=== PATIENT | female | born 1990 | race Two or more races ===

== ENCOUNTER 2019-04-07 10:22 | Emergency (ER) | payer MEDICAID ==
[~2019-04-07] VITALS: Ht 167.6 cm; Wt 87.1 kg
[~2019-04-07 10:22] MED LIST: PREN-96 PO
[2019-04-07 10:40] VITALS: BP 104/61
[2019-04-07 11:17] LABS: Basophils # (auto) 0 uL; Basophils % (auto) 0.5 % (0.0-2.0); Eosinophils # (auto) 0 uL; Eosinophils % (auto) 0.8 % (0.0-7.0); Hematocrit 38.2 % (36.0-46.0); Hemoglobin 12.6 g/dL (12.2-16.2); Lymphocytes # (auto) 1.3 uL; Lymphocytes % (auto) 23.6 % (10.0-50.0); Mean Corpuscular Hemoglobin 28.1 pg (28.0-32.0); Mean Corpuscular Volume 85.1 fL (80.0-100.0); Monocytes # (auto) 0.3 uL; Monocytes % (auto) 6.1 % (0.0-12.0); Neutrophils # (auto) 3.8 uL; Nucleated Red Blood Cells % 0.1 %; Platelet Count (auto) 248 10^3/uL (140-450); Red Blood Cells 4.49 10^6/uL (4.0-5.20); Red Cell Distribution Width 13.3 % (11.8-14.3); White Blood Cell 5.5 10^3/uL (4.4-10.8)
[2019-04-07 11:25] LABS: Alanine Aminotransferase 24 U/L (13-56); Albumin 3.9 g/dL (3.4-5.0); Anion Gap 7 (5-15); Blood Urea Nitrogen 11 mg/dL (7-18); Calcium 9.1 mg/dL (8.5-10.1); Carbon Dioxide 25 mmol/L (21-32); Chloride 105 mmol/L (98-107); Glucose 87 mg/dL (74-106); Potassium 4.2 mmol/L (3.5-5.1); Sodium 137 mmol/L (136-145)
[2019-04-07 11:30] LABS: Alkaline Phosphatase 61 U/L (45-117); Aspartate Aminotransferase 10 U/L (15-37); BUN/Creatinine Ratio 16.9; Bilirubin, Total 0.2 mg/dL (0.2-1.0); GFR African American 139 mL/min; GFR Non-African American 115 mL/min; Total Protein 7.8 g/dL (6.4-8.2)
[2019-04-07 11:46] LABS: Urine Bacteria NONE SEEN /hpf (None Seen); Urine Blood Negative /uL (Negative); Urine Specific Gravity 1.009 (1.001-1.035); Urine WBC <1 /hpf (0 - 5)
== END 2019-04-07 13:06 | disposition home or self-care (01) ==
LOC: ER 10:22
DX: O99.411 Diseases of the circulatory system complicating pregnancy, first trimester (principal); R00.2 Palpitations; Z3A.01 Less than 8 weeks gestation of pregnancy
CPT/HCPCS: 36415; 80053; 81001; 81025; 84443; 84484; 85025; 93005

== ENCOUNTER 2019-08-25 09:00 | Observation (INO) | payer MEDICAID ==
[~2019-08-25] VITALS: Ht 167.6 cm; Wt 93.4 kg
== END 2019-08-25 10:10 | disposition home or self-care (01) | DRG 566 ==
LOC: LDRP 09:00
PROVIDERS: ADMIT Obstetrics & Gynecology; ATTEND Obstetrics & Gynecology
DX: O26.872 Cervical shortening, second trimester (principal); O26.892 Other specified pregnancy related conditions, second trimester; R10.2 Pelvic and perineal pain; Z3A.27 27 weeks gestation of pregnancy
CPT/HCPCS: 59025; 81002; G0378

== ENCOUNTER 2019-08-31 09:25 | Observation (INO) | payer MEDICAID | END 2019-08-31 10:58 | disposition home or self-care (01) | DRG 566 | LOC: LDRP 09:25 | PROVIDERS: ADMIT Obstetrics & Gynecology; ATTEND Obstetrics & Gynecology | DX: O26.873 Cervical shortening, third trimester (principal); O60.03 Preterm labor without delivery, third trimester; Z3A.28 28 weeks gestation of pregnancy | CPT/HCPCS: 59025; 81002; G0378 ==

== ENCOUNTER 2019-09-06 08:00 | Observation (INO) | payer MEDICAID | END 2019-09-06 09:35 | disposition home or self-care (01) | DRG 566 | LOC: LDRP 08:00 | PROVIDERS: ADMIT Specialist; ATTEND Specialist | DX: O26.873 Cervical shortening, third trimester (principal); Z3A.29 29 weeks gestation of pregnancy | CPT/HCPCS: 59025; 76815; 81002; G0378 ==

== ENCOUNTER 2019-09-13 16:35 | Observation (INO) | payer MEDICAID ==
[~2019-09-13] VITALS: Ht 167.6 cm; Wt 94.8 kg
== END 2019-09-13 16:40 | disposition home or self-care (01) | DRG 566 ==
LOC: LDRP 16:35
PROVIDERS: ADMIT Obstetrics & Gynecology; ATTEND Obstetrics & Gynecology
DX: O26.873 Cervical shortening, third trimester (principal); O60.03 Preterm labor without delivery, third trimester; Z3A.30 30 weeks gestation of pregnancy
CPT/HCPCS: 59025; 81002; G0378

== ENCOUNTER 2019-09-21 16:40 | Observation (INO) | payer MEDICAID | END 2019-09-21 17:20 | disposition home or self-care (01) | DRG 566 | LOC: LDRP 16:40 | PROVIDERS: ADMIT Obstetrics & Gynecology; ATTEND Obstetrics & Gynecology | DX: O26.873 Cervical shortening, third trimester (principal); O62.9 Abnormality of forces of labor, unspecified; Z3A.31 31 weeks gestation of pregnancy | CPT/HCPCS: 59025; 81002; G0378 ==

== ENCOUNTER 2019-09-29 16:42 | Observation (INO) | payer MEDICAID | END 2019-09-29 17:34 | disposition home or self-care (01) | DRG 566 | LOC: LDRP 16:42 | PROVIDERS: ADMIT Obstetrics & Gynecology; ATTEND Obstetrics & Gynecology | DX: O26.873 Cervical shortening, third trimester (principal); O60.03 Preterm labor without delivery, third trimester; Z3A.32 32 weeks gestation of pregnancy | CPT/HCPCS: 59025; 81002; G0378 ==

== ENCOUNTER 2019-10-06 16:40 | Observation (INO) | payer MEDICAID | END 2019-10-06 17:30 | disposition home or self-care (01) | DRG 563 | LOC: LDRP 16:40 | PROVIDERS: ADMIT Obstetrics & Gynecology; ATTEND Obstetrics & Gynecology | DX: O60.03 Preterm labor without delivery, third trimester (principal); Z3A.33 33 weeks gestation of pregnancy | CPT/HCPCS: 59025; 81002; G0378 ==

== ENCOUNTER 2019-10-14 17:08 | Observation (INO) | payer MEDICAID ==
[~2019-10-14] VITALS: Ht 167.6 cm; Wt 97.5 kg
== END 2019-10-14 17:52 | disposition home or self-care (01) | DRG 563 ==
LOC: LDRP 17:08
PROVIDERS: ADMIT Obstetrics & Gynecology; ATTEND Obstetrics & Gynecology
DX: O60.03 Preterm labor without delivery, third trimester (principal); Z3A.34 34 weeks gestation of pregnancy
CPT/HCPCS: 59025; 81002; G0378

== ENCOUNTER 2019-11-16 15:25 | Observation (INO) | payer MEDICAID | END 2019-11-16 16:00 | disposition home or self-care (01) | DRG 566 | LOC: LDRP 15:25 | PROVIDERS: ADMIT Obstetrics & Gynecology; ATTEND Obstetrics & Gynecology | DX: O46.93 Antepartum hemorrhage, unspecified, third trimester (principal); Z3A.39 39 weeks gestation of pregnancy | CPT/HCPCS: 59025; 81002; G0378 ==

== ENCOUNTER 2019-11-18 18:50 | Inpatient (IN) | payer MEDICAID ==
[~2019-11-18] VITALS: Ht 167.6 cm; Wt 99.8 kg
[2019-11-18] MEDS ORDERED: LACT. RINGERS/OXYTOCIN 20UNITS 1,000 ML IV SCH (19:28)
[2019-11-18] MEDS ORDERED: PHISODERM TOP SOLN 240ML BTL TOP PRN (19:30)
[2019-11-18] MEDS ORDERED: METHYLERGONOVINE MALEATE 0.2 MG/ML AMP IM PRN (19:30)
[2019-11-18] MEDS ORDERED: DERMOPLAST 60ML BOTTLE TOP PRN (19:30)
[2019-11-18] MEDS ORDERED: WITCH HAZEL-GLYCERIN PAD TOP PRN (19:30)
[2019-11-18] MEDS ORDERED: LIDOCAINE 2%HCL (LOCAL ANESTH.) INJ 20ML MDV ID ONE (19:30)
[2019-11-18 20:23] LABS: Basophils # (auto) 0 uL; Basophils % (auto) 0.3 % (0.0-2.0); Eosinophils # (auto) 0 uL; Eosinophils % (auto) 0.5 % (0.0-7.0); Hematocrit 33.9 % (36.0-46.0); Hemoglobin 11.7 g/dL (12.2-16.2); Lymphocytes # (auto) 1.3 uL; Lymphocytes % (auto) 19.7 % (10.0-50.0); Mean Corpuscular Hemoglobin 28.7 pg (28.0-32.0); Mean Corpuscular Hgb Conc. 34.6 g/dL (32.0-36.0); Mean Corpuscular Volume 83.1 fL (80.0-100.0); Monocytes # (auto) 0.5 uL; Monocytes % (auto) 6.9 % (0.0-12.0); Neutrophils % (auto) 72.6 % (37.0-80.0); Nucleated Red Blood Cells % 0.1 %; Platelet Count (auto) 191 10^3/uL (140-450); Red Blood Cells 4.08 10^6/uL (4.0-5.20); Red Cell Distribution Width 15.1 % (11.8-14.3); White Blood Cell 6.9 10^3/uL (4.4-10.8)
[2019-11-18 20:42] LABS: Albumin 2.8 g/dL (3.4-5.0); Calcium 8.5 mg/dL (8.5-10.1); INR 0.92 (0.9-1.15); Partial Thromboplastin Time 26.2 sec (23.64-32.05); Potassium 3.8 mmol/L (3.5-5.1)
[2019-11-18 20:45] LABS: Bilirubin, Total 0.1 mg/dL (0.2-1.0); Total Protein 6.6 g/dL (6.4-8.2)
[2019-11-18 20:49] LABS: Urine Amorphous Crystal FEW /hpf (None Seen); Urine Bacteria FEW /hpf (None Seen); Urine Blood Negative /uL (Negative); Urine Mucus FEW (None Seen); Urine Specific Gravity 1.021 (1.001-1.035); Urine WBC 7 /hpf (0 - 5)
[2019-11-18 20:50] LABS: Alcohol, Urine < 3.0 mg/dL (0-5); Amphetamine Screen, Urine NEGATIVE (NEGATIVE); Barbiturate Scree,Urine NEGATIVE (NEGATIVE); Benzodiazephine Screen, Urine NEGATIVE (NEGATIVE); Cannabinoid Screen, Urine NEGATIVE (NEGATIVE); Cocaine Screen, Urine NEGATIVE (NEGATIVE); Opiate Scree,Urine NEGATIVE (NEGATIVE); Phencyclidine Screen, Urine NEGATIVE (NEGATIVE)
[2019-11-18] MEDS: LACTATED RINGER'S 1,000 ML IV SCH (20:56)
[2019-11-19] MEDS: LACTATED RINGER'S 1,000 ML IV SCH ×2 (02:41→09:25)
[2019-11-19] MEDS: ACETAMINOPHEN 325 MG TAB PO PRN ×2 (05:25→18:46)
[2019-11-19] MEDS ORDERED: LACTATED RINGER'S 500 ML IV ONE (13:40)
[2019-11-19] MEDS ORDERED: NALBUPHINE HCL 10 MG/1ml INJECTION IV PRN (13:45)
[2019-11-19] MEDS ORDERED: PROMETHAZINE HCL 25 MG/ML 1ML IV PRN (13:45)
[2019-11-19] MEDS ORDERED: fentaNYL CITRATE 100 MCG/2 ML VL IV ONE (13:45)
[2019-11-19] MEDS ORDERED: LIDOCAINE HCL 2 %PF INJ 10ML AMP IJ ONE (13:45)
[2019-11-19] MEDS ORDERED: fentaNYL 200mCg/100ml W ROPIVA 100 ML EPI SCH (13:45)
[2019-11-19] MEDS ORDERED: ePHEDrine SULFATE 50 MG/ML AMP IV ONE (13:45)
[2019-11-19] MEDS ORDERED: NALOXONE HCL 0.4 MG/ML VIAL IV ONE (13:45)
[2019-11-19] MEDS ORDERED: LIDOCAINE 2%HCL (LOCAL ANESTH.) INJ 20ML MDV IJ ONE (13:45)
[2019-11-19] MEDS ORDERED: BUTORPHANOL TARTRATE 2 MG/1 ML VIAL IM ONE (14:00)
[2019-11-19] MEDS ORDERED: LACT. RINGERS/OXYTOCIN 20UNITS 500 ML IV ONE (16:28)
--- NOTE | 2019-11-19 18:50 | NUR ---
Ambulation: Patient OOB with standby assistance by RN. Patient ambulated to bathroom with steady gait. Patient able to void 700cc without difficulty. [facility] teaching provided with returned demonstration by patient. Clean gown provided and bed linen changed. Patient ambulated back to bed with steady gait and no distress noted.
[2019-11-19] MEDS ORDERED: INFLUENZA QUAD 2019-2020 0.5ml SYRG IM ONE (21:15)
[2019-11-19 23:00] VITALS: BP 93/53
[2019-11-19] MEDS: IBUPROFEN 600 MG TAB PO PRN (23:13)
[2019-11-20 03:00] VITALS: BP 103/50
[2019-11-20 05:07] LABS: RPR Non Reactive (Non Reactive)
[2019-11-20 06:35] VITALS: BP 105/55
[2019-11-20] MEDS: IBUPROFEN 600 MG TAB PO PRN (07:12)
--- NOTE | 2019-11-20 08:08 | NUR ---
DR. BENJAMIN AT PT BEDSIDE, STATUS UPDATE GIVEN. ORDERS RECEIVED FROM DR. BENJAMIN TO DISCHARGE PATIENT HOME AND PT TO FOLLOW UP IN THE OB CLINIC IN 2 WEEKS. READ BACK AND VERIFIED ORDERS. WILL CARRY OUT. Addendum: 11/20/19 at 0829 by Sanam Garcia RN Amended: Links added.
--- NOTE | 2019-11-20 10:03 | NUR ---
IV removal IV DC'd with sterile technique, catheter fully intact. Pressure dressing applied to site. Patient tolerated procedure well.
[2019-11-20 11:20] VITALS: BP 110/56
--- NOTE | 2019-11-20 14:00 | NUR ---
PT ASKED IF SHE WOULD LIKE HER FLU VACCINE AT THIS TIME. PATIENT STATES SHE WANTS HER VACCINE CLOSER TO HER GOING HOME THIS EVENING. WILL CONTINUE TO MONITOR.
[2019-11-20 15:30] VITALS: BP 108/54
--- NOTE | 2019-11-20 17:02 | NUR ---
Discharge: Discharge instructions given as ordered. Pt encouraged to follow up with [facility] as instructed. All questions and concerns addressed. Patient verbalized understanding. Medication reconciliation completed and copy given to patient. All required/requested vaccines given and copies of vaccinations given to patient. Patient encouraged to prepare to depart unit.
--- NOTE | 2019-11-20 17:42 | NUR ---
Discharge: Patient taken to vehicle ambulatory via steady gait, pt declined wheelchair with all personal belongings, accompanied by staff and family member. No distress noted at time of departure, no adverse changes in status since initial assessment.
== END 2019-11-20 17:42 | disposition home or self-care (01) | DRG 560 ==
LOC: LDRP 18:50
PROVIDERS: ADMIT Specialist; ATTEND Specialist
PROC: 10E0XZZ Delivery of Products of Conception, External Approach (ICD-10-PCS; principal; 2019-11-19)
PROC: 0HQ9XZZ Repair Perineum Skin, External Approach (ICD-10-PCS; 2019-11-19)
PROC: 0UQMXZZ Repair Vulva, External Approach (ICD-10-PCS; 2019-11-19)
DX: O76 Abnormality in fetal heart rate and rhythm complicating labor and delivery (principal); O70.0 First degree perineal laceration during delivery; O71.82 Other specified trauma to perineum and vulva; Z37.0 Single live birth; Z3A.39 39 weeks gestation of pregnancy
CPT/HCPCS: 36415; 59025; 59409; 80053; 80307; 81001; 81002; 84112; 85025; 85610; 85730; 86592; 86850; 86900; 86901; 96365; 96366; 96372; G0378; J2590

== ENCOUNTER 2019-11-29 07:17 | Emergency (ER) | payer MEDICAID ==
[~2019-11-29] VITALS: Ht 167.6 cm; Wt 90.7 kg
[2019-11-29 08:15] VITALS: BP 101/62
[2019-11-29 08:20] LABS: Urine Bacteria MOD /hpf (None Seen); Urine Blood 3+ /uL (Negative); Urine Specific Gravity 1.013 (1.001-1.035); Urine WBC 319 /hpf (0 - 5); Urine WBC Clumps PRESENT /hpf (None Seen)
[2019-11-29] MEDS ORDERED: MORPHINE SULFATE 4 MG/ML SYR/VIAL IV ONE (09:00)
[2019-11-29] MEDS ORDERED: cefTRIAXone 1GM/50ML D5W 50 ML IV ONE (09:00)
[2019-11-29] MEDS ORDERED: ONDANSETRON HCL 4 MG/2 ML VIAL IV ONE (09:00)
[2019-11-29] MEDS ORDERED: SODIUM CHLORIDE 0.9% 1,000 ML IV ONE (09:15)
== END 2019-11-29 10:50 | disposition home or self-care (01) ==
LOC: ER 07:17
DX: N39.0 Urinary tract infection, site not specified (principal); N13.30 Unspecified hydronephrosis
CPT/HCPCS: 74176; 81001; 96365; 96375; 99284; J0696; J2270; J2405; J7030; J7042

== ENCOUNTER 2020-03-21 12:29 | Emergency (ER) | payer MEDICAID ==
[~2020-03-21] VITALS: Ht 167.6 cm; Wt 84.8 kg
[2020-03-21 14:15] LABS: Basophils # (auto) 0 10 ^3/uL (0-0.2); Basophils % (auto) 0.2 % (0.0-2.0); Eosinophils # (auto) 0.1 10 ^3/uL (0-0.8); Eosinophils % (auto) 1.2 % (0.0-7.0); Hematocrit 39.6 % (36.0-46.0); Lymphocytes # (auto) 1.7 10 ^3/uL (0.4-5.4); Lymphocytes % (auto) 28.9 % (10.0-50.0); Mean Corpuscular Hemoglobin 27.8 pg (28.0-32.0); Mean Corpuscular Hgb Conc. 32.9 g/dL (32.0-36.0); Mean Corpuscular Volume 84.6 fL (80.0-100.0); Monocytes # (auto) 0.4 10 ^3/uL (0-1.3); Neutrophils # (auto) 3.8 10 ^3/uL (1.6-8.6); Neutrophils % (auto) 63.7 % (37.0-80.0); Platelet Count (auto) 242 10^3/uL (140-450); Red Blood Cells 4.68 10^6/uL (4.0-5.20); Red Cell Distribution Width 14.3 % (11.8-14.3); White Blood Cell 5.9 10^3/uL (4.4-10.8)
[2020-03-21 16:26] LABS: Urine Bacteria FEW /hpf (None Seen); Urine Blood 1+ /uL (Negative); Urine Mucus FEW (None Seen); Urine Specific Gravity 1.011 (1.001-1.035); Urine WBC 1 /hpf (0 - 5)
[2020-03-21 16:50] VITALS: BP 104/64
== END 2020-03-21 16:52 | disposition home or self-care (01) ==
LOC: ER 12:29
DX: O03.9 Complete or unspecified spontaneous abortion without complication (principal); Z79.899 Other long term (current) drug therapy; Z3A.01 Less than 8 weeks gestation of pregnancy
CPT/HCPCS: 36415; 76801; 76817; 81001; 84702; 85025

== ENCOUNTER 2020-07-07 06:08 | Day surgery (SDC) | payer MEDICAID ==
[2020-07-03 14:38] LABS: Basophils # (auto) 0 10 ^3/uL (0-0.2); Basophils % (auto) 0.4 % (0.0-2.0); Eosinophils # (auto) 0.1 10 ^3/uL (0-0.8); Eosinophils % (auto) 1.9 % (0.0-7.0); Hemoglobin 13.5 g/dL (12.2-16.2); Lymphocytes # (auto) 1.6 10 ^3/uL (0.4-5.4); Lymphocytes % (auto) 31.2 % (10.0-50.0); Mean Corpuscular Hemoglobin 27.9 pg (28.0-32.0); Mean Corpuscular Volume 84.5 fL (80.0-100.0); Monocytes # (auto) 0.4 10 ^3/uL (0-1.3); Monocytes % (auto) 6.7 % (0.0-12.0); Neutrophils # (auto) 3.1 10 ^3/uL (1.6-8.6); Neutrophils % (auto) 59.8 % (37.0-80.0); Nucleated Red Blood Cells % 0.1 %; Platelet Count (auto) 253 10^3/uL (140-450); Red Blood Cells 4.85 10^6/uL (4.0-5.20); Red Cell Distribution Width 13.5 % (11.8-14.3); White Blood Cell 5.2 10^3/uL (4.4-10.8)
[2020-07-03 14:52] LABS: Urine Bacteria FEW /hpf (None Seen); Urine Blood Negative /uL (Negative); Urine Specific Gravity 1.016 (1.001-1.035); Urine WBC 1 /hpf (0 - 5)
[2020-07-03 14:56] LABS: INR 0.99 (0.9-1.15); Partial Thromboplastin Time 28.6 sec (23.0-31.2)
[2020-07-03 15:05] LABS: Albumin 4.1 g/dL (3.4-5.0); Calcium 9.1 mg/dL (8.5-10.1); Potassium 3.9 mmol/L (3.5-5.1)
[2020-07-03 15:09] LABS: BUN/Creatinine Ratio 22.2; Bilirubin, Total 0.3 mg/dL (0.2-1.0); Total Protein 8.3 g/dL (6.4-8.2)
[~2020-07-07] VITALS: Ht 167.6 cm; Wt 89.8 kg
[~2020-07-07 06:08] MED LIST changes: +CHOL1TAB16 PO; -PREN-96 PO
[2020-07-07] MEDS ORDERED: ceFAZolin 1GM/50ML 50 ML IV ONE (06:56)
[2020-07-07] MEDS ORDERED: MIDAZOLAM HCL 1MG/1ML-2 ML VIAL ONE (07:37)
[2020-07-07] MEDS ORDERED: fentaNYL CITRATE 100 MCG/2 ML VL ONE (07:37)
[2020-07-07] MEDS ORDERED: MEPERIDINE HCL (50 MG/ML) 1 ML VIAL ONE (07:38)
[2020-07-07] MEDS ORDERED: DexAMETHasone SOD PHOS 10MG/1ML VIAL INJ ONE (07:39)
[2020-07-07] MEDS ORDERED: PROPOFOL 10 MG/ML 20 ML IV ONE (07:39)
[2020-07-07] MEDS ORDERED: ROCURONIUM 10MG/ML 10ML VIAL IV ONE (07:39)
[2020-07-07] MEDS ORDERED: NEOSTIGMINE 1 MG/ML INJ (10mg/10ML VIAL) ONE (08:13)
[2020-07-07] MEDS ORDERED: LACTATED RINGER'S 1,000 ML IV SCH (08:24)
[2020-07-07] MEDS ORDERED: GLYCOPYRROLATE 0.2 MG/ML 1ML VIAL ONE (08:24)
[2020-07-07] MEDS ORDERED: ONDANSETRON HCL 4 MG/2 ML VIAL IV PRN ×2 (08:30→08:45)
[2020-07-07] MEDS ORDERED: HYDROmorphone HCL 2 MG/ML VL IV PRN (08:45)
[2020-07-07] MEDS ORDERED: MORPHINE SULFATE 4 MG/ML SYR/VIAL IV PRN (08:45)
[2020-07-07] MEDS ORDERED: ePHEDrine SULFATE 50 MG/ML AMP IV PRN (08:45)
[2020-07-07] MEDS ORDERED: LABETALOL HCL 5 MG/ML 4ML SYRINGE IV PRN (08:45)
[2020-07-07] MEDS ORDERED: KETOROLAC TROMETH 30 MG/ML 1ML VIAL IV ONE (08:45)
[2020-07-07 09:30] VITALS: BP 111/61
== END 2020-07-07 10:00 | disposition home or self-care (01) ==
LOC: SUR 06:08
PROVIDERS: ATTEND Obstetrics & Gynecology
DX: Z30.2 Encounter for sterilization (principal); E66.01 Morbid (severe) obesity due to excess calories; Z68.32 Body mass index [BMI] 32.0-32.9, adult; Z20.828 Contact with and (suspected) exposure to other viral communicable diseases
CPT/HCPCS: 36415; 58671; 80053; 81001; 84702; 85025; 85610; 85730; 86850; 86900; 86901; J0690; J1100; J2175; J2250; J2405; J2704; J3010; U0003